=== PATIENT | male | born 1955 | race Caucasian/White ===

== ENCOUNTER 2018-03-18 14:02 | Observation (INO) | payer MEDICARE, OTHER ==
[~2018-03-18] VITALS: Ht 177.8 cm; Wt 70.0 kg
[2018-03-18] MEDS ORDERED: aspirin 81mg tab.chew PO ONE (14:20)
[2018-03-18] MEDS: nitroGLYCERIN 0.4mg SUBLingual tab SL PRN ×2 (14:29→15:13)
[2018-03-18 14:35] LABS: BASOPHILS # (AUTO) 0.2 X10'3 (0-0.2); BASOPHILS % (AUTO) 1.3 % (0-1); EOSINOPHILS # (AUTO) 0.2 X10'3 (0-0.9); EOSINOPHILS % (AUTO) 2.1 % (0-6); HEMATOCRIT 48.4 % (42.0-52.0); HEMOGLOBIN 16.3 g/dl (14.0-17.9); LYMPHOCYTES # (AUTO) 2.1 X10'3 (1.1-4.8); LYMPHOCYTES % (AUTO) 18.1 % (21-51); MEAN CORPUSCULAR HEMOGLOBIN 31.8 PG (27.0-31.0); MEAN CORPUSCULAR HGB CONC 33.6 % (33.0-36.5); MEAN CORPUSCULAR VOLUME 94.4 FL (78-98); MEAN PLATELET VOLUME 9.6 FL (7.4-10.4); MONOCYTES # (AUTO) 0.5 X10'3 (0-0.9); MONOCYTES % (AUTO) 4.6 % (2-12); NEUTROPHILS # (AUTO) 8.4 X10'3 (1.8-7.7); NEUTROPHILS % (AUTO) 73.9 % (42-75); PLATELET COUNT 209 X10'3 (140-440); RED BLOOD COUNT 5.13 X10'6 (4.70-6.10); RED CELL DISTRIBUTION WIDTH 13.2 % (11.5-14.5); WHITE BLOOD COUNT 11.3 X10'3 (4.5-11.0)
[2018-03-18 14:50] LABS: ALANINE AMINOTRANSFERASE 20 U/L (12-78); ALBUMIN 3.9 G/DL (3.4-5.0); ALBUMIN/GLOBULIN RATIO 1.1 (1.1-1.5); ALKALINE PHOSPHATASE 74 IU/L (46-116); ANION GAP 11 (8-16); ASPARTATE AMINO TRANSFERASE 16 U/L (10-37); BILIRUBIN,TOTAL 0.7 MG/DL (0.1-1.0); BLOOD UREA NITROGEN 19 MG/DL (7-18); BUN/CREATININE RATIO 19.2 (5.4-32.0); CALCIUM 9.1 MG/DL (8.5-10.1); CHLORIDE 106 MMOL/L (99-107); CREATININE 0.99 MG/DL (0.60-1.10); GLUCOSE 173 MG/DL (70-104); POTASSIUM 3.9 MMOL/L (3.5-5.1); SODIUM 141 MMOL/L (135-145); TOTAL CARBON DIOXIDE 23.7 MMOL/L (24-32); TOTAL PROTEIN 7.4 G/DL (6.4-8.2); eGFR 76 ML/MIN
[2018-03-18 14:51] LABS: INR 1.1 INR; PARTIAL THROMBOPLASTIN TIME 28 SECONDS (22-32); PROTHROMBIN TIME 10.7 SECONDS (9.0-12.0)
[2018-03-18 15:39] LABS: D-DIMER 0.59 MG/L FEU (0-0.50)
[2018-03-18] MEDS ORDERED: GABA800T2 PO (16:39)
[2018-03-18] MEDS ORDERED: GABA600T2 PO (16:39)
[2018-03-18] MEDS ORDERED: effexor (16:40)
[2018-03-18] MEDS ORDERED: nitroGLYCERIN 0.4mg SUBLingual tab SL PRN ×2 (17:00→17:05)
[2018-03-18] MEDS ORDERED: morphine 2 MG/ML inj. syringe IV PRN ×2 (17:00)
[2018-03-18] MEDS ORDERED: ondansetron/PF 4mg/2ml inj IV PRN (17:00)
[2018-03-18] MEDS ORDERED: HYDROcodone/acetaminophen 5mg/325mg tablet PO PRN (17:00)
[2018-03-18] MEDS ORDERED: HYDROcodone/acetaminophen 10/325mg tab PO PRN (17:00)
[2018-03-18] MEDS ORDERED: mag hydrox/Alum hydrox/simeth 30ml oral suspension PO PRN (17:00)
[2018-03-18] MEDS ORDERED: magnesium hydroxide 30ml (MOM) UD suspension PO PRN (17:00)
[2018-03-18] MEDS ORDERED: acetaminophen 325mg tablet PO PRN (17:00)
[2018-03-18] MEDS ORDERED: aminophylline 250mg/10ml inj. IV PRN (17:05)
[2018-03-18] MEDS ORDERED: regadenoson 0.4mg/5ml syringe IV PRN (17:05)
[2018-03-18] MEDS ORDERED: metoprolol tartrate 1mg/ml inj IV PRN (17:05)
[2018-03-18 18:00] VITALS: BP 146/90
[2018-03-18] MEDS ORDERED: GABA-532 PO (22:23)
[2018-03-18] MEDS ORDERED: Melatonin 3mg tablet PO SCH (23:00)
[2018-03-18] MEDS ORDERED: gabapentin 300mg capsule PO ONE (23:35)
[2018-03-19] VITALS (13 sets, daily range): BP systolic 135–162; BP diastolic 82–100
[2018-03-19] MEDS ORDERED: enoxaparin 40mg/0.4ml syringe SUBCUT SCH (08:00)
[2018-03-19] MEDS ORDERED: aspirin 81mg tablet.DR PO SCH (08:00)
[2018-03-19] MEDS ORDERED: aminophylline inj. 10 ML IV ONE (10:17)
[2018-03-19] MEDS ORDERED: regadenoson 0.4mg/5ml syringe IV ONE (10:17)
[2018-03-19] MEDS ORDERED: gabapentin 300mg capsule PO SCH ×2 (12:00→21:00)
[2018-03-19] MEDS ORDERED: gabapentin 400mg capsule PO SCH (12:00)
[2018-03-19] MEDS ORDERED: TRAM50TA2 PO (14:42)
[2018-03-19] MEDS ORDERED: iohexol 350MG/ML 100ml bottle IV ONE (15:19)
[2018-03-19] MEDS ORDERED: Melatonin 3mg tablet PO SCH (21:00)
== END 2018-03-19 18:35 | disposition home or self-care (01) ==
LOC: ER 14:03 → ED HOLD 17:00 → SUR 3N 18:53
PROVIDERS: ADMIT Internal Medicine; ATTEND Internal Medicine
DX: R07.89 Other chest pain (principal); I25.10 Atherosclerotic heart disease of native coronary artery without angina pectoris; F17.210 Nicotine dependence, cigarettes, uncomplicated; I10 Essential (primary) hypertension; R79.1 Abnormal coagulation profile; G89.29 Other chronic pain
CPT/HCPCS: 36415; 71045; 71275; 78452; 80053; 83880; 84484; 85025; 85379; 85610; 85730; 87070; 93005; 93017; 93306; 96374; 99284; A9500; G0378; J0280; Q9967; J1650